=== PATIENT | female | born 1980 | race American Indian/Alaskan Native ===

== ENCOUNTER 2022-04-16 17:34 | Emergency (ER) | payer OTHER, BC ==
[~2022-04-16] VITALS: Ht 160 cm; Wt 208.7 kg
[~2022-04-16 17:34] MED LIST: IBUPROFEN800 MG PO; IRON256 MG PO; NORCO 5-325 TA1 EACH PO; PROVERA10 MG PO; ROBAXIN-750750 MG PO; VITAMIN C100 MG; VITAMIN C100 MG PO
--- OUTSIDE RECORDS SUMMARY | 2022-04-16 17:42 | XMS ---
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 Autumn has no Care Guidelines for this patient. Alexey VISIT COUNT (12 MO.) [address] [facility] NOTE: Visits indicate total known visits. [place] [place]12 MO.) [facility] COMPLAINT: - FALL, HEAD INJUR[facility] DIAGNOSES: - Mild intermittent asthma, uncomplicated - Shortness of Breath - Obstructive sleep apnea (adult) (pediatric) - Pneumonia, unspecified organism - Bronchopneumonia, unspecified organism - Acute respiratory failure with hypoxia - Hypoxemia INPATIENT VISIT TRACKING (12 MO.) [facility] DIAGNOSES: - Hypoxemia - Bronchopneumonia, unspecified organism - Obstructive sleep apnea (adult) (pediatric) - Mild intermittent asthma, uncomplicated - Acute respiratory failure with hypoxia - Pneumonia, unspecified organism [email or web address]
== END 2022-04-16 21:11 | disposition home or self-care (01) ==
LOC: ED 17:34
DX: S01.81XA Laceration without foreign body of other part of head, initial encounter (principal); W01.190A Fall on same level from slipping, tripping and stumbling with subsequent striking against furniture, initial encounter; F17.200 Nicotine dependence, unspecified, uncomplicated; Z88.0 Allergy status to penicillin
CPT/HCPCS: 70450; 99283-25

== ENCOUNTER 2023-11-22 22:26 | Emergency (ER) | payer OTHER ==
[~2023-11-22] VITALS: Ht 160 cm; Wt 222.3 kg
[2023-11-22 23:57] VITALS: BP 133/78
== END 2023-11-22 23:59 | disposition home or self-care (01) ==
LOC: ED 22:26
DX: M79.662 Pain in left lower leg (principal); F17.200 Nicotine dependence, unspecified, uncomplicated; Z88.0 Allergy status to penicillin
CPT/HCPCS: 93971